=== PATIENT | female | born 1990 | race Caucasian/White ===

== ENCOUNTER 2020-01-19 10:40 | Emergency (ER) | payer OTHER, SELFPAY ==
[2020-01-19 10:47] VITALS: BP 129/69; PULSE 84; RESP 18; TEMP 36.6; O2SAT 100
--- NOTE | 2020-01-19 10:52 | ED.GENADULT ---
HPI - General Adult General Chief complaint: Ear Stated complaint: EARACHE Time Seen by Provider: 01/19/20 10:53 Source: patient and RN notes reviewed Mode of arrival: ambulatory Limitations: no limitations History of Present Illness HPI narrative: 29-year-old female presents with complaints of upper respiratory infection, facial congestion, facial pain, cough, PND, and intermittent headaches (none now, not the worst of her life) for the past 14 days. Ibuprofen, last on 01/18/20 with some relief. LT ear pain started 2-3 days ago without drainage, injury, or itching. No facial swelling. Denies cough. Nasal congestion and rhinorrhea. No chest pain or shortness of breath. Exacerbating factors consist of smoke exposure. Denies fever or chills. Denies nausea, vomiting, and abdominal pain. Tolerating po intake well. Remains active. denies being , LMP 3 weeks ago. Some parts of this dictation were generated by voice recognition software and may contain typographical and/or grammatical inaccuracies. Related Data Allergies Allergy/AdvReac Type Severity Reaction Status Date / Time Sulfa (Sulfonamide Allergy Mild OTHER Verified 01/19/20 10:52 Antibiotics) ibuprofen Allergy Unknown Gastrointestinal Verified 01/19/20 10:52 Upset Review of Systems Review of Systems: Narrative: CONSTITUTIONAL: Denies fever, chills, sweats. EYES: Denies visual changes, redness, discharge. ENT: Complains of rhinorrhea, congestion, facial pain and congestion, LT otalgia. Denies sore throat. CARDIOVASCULAR: Denies chest pain, palpitations, edema. RESPIRATORY: Denies dyspnea, wheezing, cough. GASTROINTESTINAL: Denies abdominal pain, nausea, vomiting, diarrhea. GENITOURINARY: Denies dysuria, hematuria, abnormal discharge. SKIN: Denies rash or itching. MUSCULOSKELETAL: Denies acute back pain, joint pain, or myalgia. NEUROLOGIC: Denies numbness or focal weakness. Complains of intermittent BELLA. PSYCHIATRIC: Denies anxiety or depression. All systems reviewed & are unremarkable except as noted in HPI and below. [facility] Past Medical History Medical History (Updated 01/19/20 @ 11:27 by DAYAMI Vick) Asthma activity induced Miscarriage PCOS (polycystic ovarian syndrome) UTI (urinary tract infection) Surgical History Surgical History (Updated 01/19/20 @ 11:27 by DAYAMI Vick) No significant past surgical history Family History Family History (Updated 01/19/20 @ 11:28 by DAYAMI Vick) Mother Asthma Grandparent Diabetes mellitus Social History Social History (Updated 01/19/20 @ 11:30 by DAYAMI Vick) Smoking status: Former smoker Second hand tobacco smoke exposure: Yes (e-cigarettes) Additional smoking assessment comments: stopped 2 years ago Alcohol intake: current Alcohol use details: Occasionally Substance use: never Living arrangements: with family Occupation/Education: occupation Gender identity (if verbalized by the patient): Female Comments At time of signature, agree with nurse past medical, surgical, social, and family history. There is no relevant family history pertinent to the presenting complaint. Exam Narrative: Exam Narrative: GENERAL: This is a well-nourished, well-developed patient, in no apparent distress. Talks in full sentences and ambulates with steady gait without dyspnea. HEAD: normocephalic, atraumatic. EYES: PERRL. Sclera clear/white. Vision is grossly intact. EARS: External ears normal, auditory canals clear and without drainage, TMs normal without perforation. Hearing grossly intact. NOSE: External nose normal with no obvious nasal discharge, nares with mild redness and enlarged turbinates, clear rhinorrhea. SINUSES: Mild-moderate tenderness upon palpation to maxillary and frontal sinuses. THROAT: Mucous membranes moist, posterior pharynx with PND, mild erythema, no exudate, and normal tonsils. No drainage, no concern
== END 2020-01-19 11:09 | disposition home or self-care (01) ==
PROVIDERS: Emergency Provider Nurse Practitioner Family
DX: J01.00 Acute maxillary sinusitis, unspecified (principal); Z87.891 Personal history of nicotine dependence; J45.990 Exercise induced bronchospasm; E28.2 Polycystic ovarian syndrome
CPT/HCPCS: 99213; G0463

== ENCOUNTER 2020-02-18 12:14 | Emergency (ER) | payer OTHER, SELFPAY ==
--- NOTE | ~2020-02-18 | US_ITS ---
EXAMINATION: US OB <=14 wk fetus w TV DATE: 02/18/2020 13:50 INDICATION: Vaginal bleeding. TECHNIQUE: Real-time transabdominal and transvaginal obstetric ultrasound. FINDINGS: No prior studies for comparison. The uterus measures 9.3 x 6.8 x 5.6 cm. There is an intrauterine gestational sac, with pole eladia ntified. Gestational sac diameter is 1.9 cm corresponding to 6 week 6 day gestational age. [place]-rump length measures 0.18 cm. heart rate is 93 BPM. There are follicular changes of the ovaries. IMPRESSION: 1. Intrauterine gestational sac containing pole with heart rate of 93 BPM. Mean sac diameter co rresponds to a 6 week 6 day gestational age, although crown-rump length is below limits for estimated gestational age. Recommend follow-up with serial quantitative beta-hCG levels and ultrasound as clin ically warranted. 2: Small subchorionic hemorrhage. Reviewed, dictated and finalized at location A. IMPRESSION: 1. Intrauterine gestational sac containing pole with heart rate of 93 BPM . Mean sac diameter corresponds to a 6 week 6 day gestational age, although microsoft dynamics ax developer wn-rump length is below limits for estimated gestational age. Recommend follow- up with serial quantitative beta-hCG levels and ultrasound as clinically jose juan damaris. 2: Small subchorionic hemorrhage.
[2020-02-18 12:38] VITALS: BP 144/86; PULSE 108; RESP 18; TEMP 36.8; O2SAT 99
[2020-02-18] MEDS: FAMOTIDINE 20 MG/2 ML VIAL IV PUSH (12:43)
[2020-02-18] MEDS: ONDANSETRON INJ 4 MG/2 ML VIAL IV PUSH (12:43)
[2020-02-18] MEDS: SODIUM CHLORIDE 0.9% IV 1,000 ML 999 ML IV CONT (12:43)
--- NOTE | 2020-02-18 12:50 | ED.GENADULT ---
HPI - General Adult General Chief complaint: Nausea/Vomiting/Diarrhea Stated complaint: vomiting Time Seen by Provider: 02/18/20 12:19 Source: patient and family Mode of arrival: ambulatory Limitations: no limitations History of Present Illness HPI narrative: Patient is a 29-year-old female who presents to emergency department for evaluation of lower pelvic cramping vaginal bleeding and emesis that is been present now for the last several days patient notes she is 6 weeks G3, P1 patient has plans to see her bag bailer in the near future has not had ultrasound. Patient notes she has plans to terminate the . Patient notes multiple episodes of emesis for which she has not taken anything for her symptoms. Related Data Allergies Allergy/AdvReac Type Severity Reaction Status Date / Time Sulfa (Sulfonamide Allergy Mild OTHER Verified 01/19/20 10:52 Antibiotics) ibuprofen Allergy Unknown Gastrointestinal Verified 01/19/20 10:52 Upset Review of Systems Review of Systems: All systems reviewed & are unremarkable except as noted in HPI and below PMFSH Past Medical History Medical History Asthma activity induced Miscarriage PCOS (polycystic ovarian syndrome) UTI (urinary tract infection) Surgical History Surgical History No significant past surgical history Family History Family History (Updated 01/19/20 @ 11:28 by DAYAMI Vick) Mother Asthma Grandparent Diabetes mellitus Social History Social History Smoking status: Former smoker Second hand tobacco smoke exposure: Yes (e-cigarettes) Additional smoking assessment comments: stopped 2 years ago Alcohol intake: current Substance use: never Gender identity (if verbalized by the patient): Female Exam Narrative: Exam Narrative: GENERAL: Well-appearing, well-nourished, and in no acute distress. HEAD: Normocephalic, atraumatic. EYES: PERRLA and EOMI. ENT: Nares clear, no rhinorrhea or epistaxis. Mucous membranes moist. CHEST: Clear to auscultation. No respiratory distress. No wheezes rales or rhonchi HEART: Regular rate and rhythm. No murmur heard. Normal peripheral pulses. ABDOMEN: Soft, nontender, nondistended EXTREMITIES: Normal range of motion. No edema. SKIN: Warm, dry, no rash. NEURO: No focal deficits. Alert and oriented x3. PSYCH: Normal mood and affect. Course Course Emergency Course: Patient in the room at this time no distress feeling better was hydrated tolerating p.o. intake felt appropriate for outpatient reevaluation by her sales marketing Consultations Consultation #1: spoke with dr vernon who recommends following in clinic this week Vital Signs Vital signs: Vital Signs Temperature 98.3 F 02/18/20 12:38 Pulse Rate 108 H 02/18/20 12:38 Respiratory Rate 18 02/18/20 12:38 Blood Pressure 144/86 H 02/18/20 12:38 Pulse Oximetry 99 02/18/20 12:38 Temperature 98.3 F 02/18/20 12:38 Pulse Rate 108 H 02/18/20 12:38 Respiratory Rate 18 02/18/20 12:38 Blood Pressure 144/86 H 02/18/20 12:38 Pulse Oximetry 99 02/18/20 12:38 Medical Decision Making MDM Narrative Medical decision making narrative: Patient in the room in no distress aware of case findings treatment plan and diagnosis advised to follow-up with sales marketing aware of recommendations and provided with reasons to return Vital Signs Vital Signs: Vital Signs Temperature 98.3 F 02/18/20 12:38 Pulse Rate 108 H 02/18/20 12:38 Respiratory Rate 18 02/18/20 12:38 Blood Pressure 144/86 H 02/18/20 12:38 Pulse Oximetry 99 02/18/20 12:38 Temperature 98.3 F 02/18/20 12:38 Pulse Rate 108 H 02/18/20 12:38 Respiratory Rate 18 02/18/20 12:38 Blood Pressure 144/86 H 02/18/20 12:38 Pulse Oximetry 99 02/18/20 12:38 Lab Data
[2020-02-18 12:56] LABS: Basophils Percent Auto 0.2 % (0.2-1.2); Eosinophils Percent Auto 0.2 % (0-4.4); Hematocrit 40.5 % (37.0-47.0); Immature Granulocyte Absolute 0.03 K/mm3 (0.00-0.031); Immature Granulocyte Percent A 0.3 % (0-0.5); Lymphocytes Absolute Auto 1.39 K/mm3 (0.9-3.2); Lymphocytes Percent Auto 15.5 % (18.3-44.2); Mean Corpuscular HGB Conc 34.6 g/dl (32-36); Mean Corpuscular Hemoglobin 29.8 pg (26-34); Mean Corpuscular Volume 86.2 fl (80-100); Mean Platelet Volume 8.8 fl (7.4-10.4); Monocytes Absolute Auto 0.5 K/mm3 (0.1-0.6); Monocytes Percent Auto 5.2 % (2.6-8.5); Neutrophils Absolute Auto 7.1 K/mm3 (1.3-6.7); Neutrophils Percent Auto 78.6 % (45.5-73.1); Platelet Count Result 336 k/mm3 (150-375); Red Cell Distribution Width 12.3 % (11.5-14.5)
[2020-02-18 13:08] LABS: Alanine Aminotransferase 47 U/L (4-35); Albumin Level 4.8 g/dL (3.5-5.1); Alkaline Phosphatase 79 U/L (38-126); Aspartate Amino Transferase 39 U/L (14-36); Bilirubin,Total 0.9 mg/dL (0.2-1.3); Blood Urea Nitrogen 15 mg/dL (7-17); Calcium 9.9 mg/dL (8.4-10.2); Carbon Dioxide 24 mmol/L (22-30); Chloride 104 mmol/L (98-107); Estimated Glomerular Filt Rate > 60; Glucose 97 mg/dL (65-105); Lipase 67 U/L (23-300); Potassium 3.7 mmol/L (3.4-5.0); Sodium 137 mmol/L (137-145)
[2020-02-18 13:58] LABS: Add Urine Microscopic? YES; Appearance Urine Clear (Clear); Bacteria Urine Trace /hpf; Bilirubin Urine Negative (Negative); Blood Urine 1+ (Negative); Color Urine Amber (Yellow); Glucose Urine UA Negative (Negative); Ketones Urine 1+ mg/dL (Negative); Leukocyte Esterase Ur Trace LEU/UL (Negative); Mucus Urine Heavy /lpf; Nitrate Urine Negative (Negative); Protein Urine 1+ mg/dL (Negative); RBC Urine 0-2 /hpf (0-2); Specific Grav Ur 1.029 (1.001-1.035); Squamous Epithelial Cell Urine Few /hpf (Few); WBC Urine 0-3 /hpf
[2020-02-18 14:55] VITALS: BP 119/69; PULSE 73; O2SAT 100
== END 2020-02-18 14:56 | disposition home or self-care (01) ==
PROVIDERS: Emergency Medicine Emergency Medical Services; Emergency Provider Emergency Medicine
DX: O20.9 Hemorrhage in early pregnancy, unspecified (principal); Z3A.01 Less than 8 weeks gestation of pregnancy; O99.281 Endocrine, nutritional and metabolic diseases complicating pregnancy, first trimester; E28.2 Polycystic ovarian syndrome; Z87.440 Personal history of urinary (tract) infections; O99.511 Diseases of the respiratory system complicating pregnancy, first trimester; J45.990 Exercise induced bronchospasm; Z77.29 Contact with and (suspected) exposure to other hazardous substances; Z87.891 Personal history of nicotine dependence
CPT/HCPCS: 36415; 76801; 76817; 80053; 81001; 81025; 83690; 84702; 85025; 86900; 86901; 96361; 96374; 96375; 99284; J2405; J7030

== ENCOUNTER 2020-12-23 14:47 | Emergency (ER) | payer OTHER, SELFPAY ==
[2020-12-23 14:56] VITALS: BP 128/80; PULSE 97; RESP 12; TEMP 36.9; O2SAT 99
--- NOTE | 2020-12-23 15:01 | ED.EAR ---
HPI - Ear Problem General Chief complaint: Ear Stated complaint: ear pain/jaw pain/sinus drainage Time Seen by Provider: 12/23/20 15:02 Source: patient and RN notes reviewed History of Present Illness HPI Narrative: Patient is a 30-year-old female who presents the urgent care with complaints of left ear pain, mild sinus drainage and left jaw pain. Patient states that it is ongoing for approximately 4 days. Patient states she does have an upper left broken wisdom tooth which is been there for some time and she has been unable to obtain an oral surgeon due to insurance purposes. Patient denies of any fever, chills, nausea, vomiting, cough. Patient states that she has taken antihistamines for the postnasal drainage and naproxen. Patient states that nothing seems to be helping with the pain. No other acute complaints. No acute distress noted. Patient states she has been tested for Covid regularly and denies of any recent exposure. Patient aware of the plan of care. Some parts of this dictation were generated by voice recognition software and may contain typographical and/or grammatical inaccuracies. Related Data Home Medications Medication Instructions Recorded Confirmed No Home Medications 12/23/20 12/23/20 Allergies Allergy/AdvReac Type Severity Reaction Status Date / Time Sulfa (Sulfonamide Allergy Mild OTHER Verified 12/23/20 14:59 Antibiotics) ibuprofen Allergy Unknown Gastrointestinal Verified 12/23/20 14:59 Upset Review of Systems Review of Systems: Narrative: CONSTITUTIONAL: Denies fever, chills, or sweats. EYES: Denies visual changes, redness, or discharge. ENT: Reports of sinus drainage, left otalgia and left jaw pain CARDIOVASCULAR: Denies chest pain, palpitations, or edema. RESPIRATORY: Denies cough or dyspnea. GASTROINTESTINAL: Denies abdominal pain, nausea, vomiting, or diarrhea. GENITOURINARY: Denies dysuria or hematuria. SKIN: Denies rash or itching. MUSCULOSKELETAL: Denies back pain, joint pain, or myalgia. NEUROLOGIC: Denies headache, numbness, or weakness. All other systems reviewed are negative, except as documented in HPI. [facility] Past Medical History Medical History (Updated 12/23/20 @ 15:13 by DAYAMI Arthur) Asthma activity induced Miscarriage PCOS (polycystic ovarian syndrome) UTI (urinary tract infection) Surgical History Surgical History No significant past surgical history Family History Family History (Updated 01/19/20 @ 11:28 by DAYAMI Vick) Mother Asthma Grandparent Diabetes mellitus Social History Social History Smoking status: Former smoker Second hand tobacco smoke exposure: Yes (e-cigarettes) Additional smoking assessment comments: stopped 2 years ago Alcohol intake: current Substance use: never Gender identity (if verbalized by the patient): Female Comments At the time of my signature, I reviewed and agree with the nursing past medical, surgical, social, and family history. There is no relevant family history pertinent to the patient complaint. Exam Narrative: Exam Narrative: GENERAL: This is a well-nourished, well-developed patient, in no apparent distress. HEAD: normocephalic, atraumatic. EYES: PERRL. Sclera clear/white. Vision is grossly intact. EARS: External ears normal, auditory canals clear and without drainage, mild fluid noted behind left TM without otitis, TMs normal without perforation. Hearing grossly intact. NOSE: External nose normal with no obvious nasal discharge, nares without redness, no rhinorrhea. THROAT: Mucous membranes moist, mild postnasal drainage without exudate or ulceration. No tonsillar edema noted. DENTAL: Notable buccal fracture to the left upper third molar without any notable abscess or carious lesion NECK: Neck supple, non-tender without lymphadenopathy CARDIOVASCULAR: Re
== END 2020-12-23 15:19 | disposition home or self-care (01) ==
PROVIDERS: Emergency Provider Nurse Practitioner Family
DX: H92.02 Otalgia, left ear (principal); K08.89 Other specified disorders of teeth and supporting structures; Z87.891 Personal history of nicotine dependence; J45.990 Exercise induced bronchospasm; E28.2 Polycystic ovarian syndrome
CPT/HCPCS: 99211; G0463

== ENCOUNTER 2024-04-05 15:45 | Emergency (ER) | payer OTHER, SELFPAY ==
[2024-04-05 15:56] VITALS: BP 125/86; PULSE 103; RESP 16; TEMP 36.9; O2SAT 100
--- NOTE | 2024-04-05 15:59 | ED.URI ---
HPI - URI/Sore Throat General Chief Complaint: Upper Respiratory Infection Stated Complaint: CONGESTION/EARS/CHEST Source: patient and RN notes reviewed Mode of arrival: ambulatory Limitations: no limitations History of Present Illness HPI Narrative: 33 y/o female presented for c/o nasal congestion and drainage, bilateral ear pressure, and now it moved into the chest. Denies chest pain, palpitations, sob, wheezing, n/v/d/f/c. Taking Sudafed and Robitussin. Reports children with similar symptoms MD elicited complaint: cough Related Data Allergies Allergy/AdvReac Type Severity Reaction Status Date / Time Sulfa (Sulfonamide AdvReac Mild OTHER Verified 04/05/24 16:00 Antibiotics) Review of Systems Review of Systems: CONSTITUTIONAL: denies malaise, chills, sweats, fever EYES: Denies visual changes, redness, or discharge ENT: Reports rhinorrhea, congestion, denies sinus pain, otalgia, sore throat CARDIOVASCULAR: Denies chest pain, palpitations, edema RESPIRATORY: Reports cough, post nasal drainage. Denies dyspnea GASTROINTESTINAL: Denies abdominal pain, nausea, vomiting, diarrhea SKIN: Denies rash or itching MUSCULOSKELETAL: denies myalgia NEUROLOGIC: Denies headache PMFSH Past Medical History Medical History (Updated 04/05/24 @ 16:24 by Azucena Moreira APRN) Anxiety Asthma activity induced Miscarriage PCOS (polycystic ovarian syndrome) UTI (urinary tract infection) Vaginal irritation Surgical History Surgical History H/O cystoscopy No significant past surgical history Family History Family History Mother Asthma Grandparent Diabetes mellitus Ovary cancer Cervix cancer Social History Social History (Updated 09/28/22 @ 09:58 by Rachel Noguera MA) Smoking status: Current some day smoker Tobacco type: e-cigarettes/vaping Second hand tobacco smoke exposure: Yes (e-cigarettes) Additional smoking assessment comments: stopped 2 years ago Alcohol intake: current Alcohol use details: Occasionally Substance use: never Living arrangements: with family Occupation/Education: occupation 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 TMs pearly moreno with dull light reflex bilaterally; no tragal tenderness. Oropharynx not erythematous without lesions or exudate, no drooling, no hoarseness, no trismus, uvula midline. CHEST: Clear to auscultation, breath sounds equal. No wheezing, rhonchi, rales, or stridor. No respiratory distress, speaks in full sentences. HEART: Regular rate and rhythm. No murmur heard. SKIN: Warm, dry, no rash. NEURO: Alert and oriented x3. PSYCH: Normal mood and affect Course Course Emergency Course: Patient is aware of diagnosis, understands and agrees to treatment plan. Anticipatory guidance given. Patient agrees to follow-up as directed and is aware of reasons to seek care at the emergency department. Portions of this record may have been created with voice recognition software Level of Care: Express Care Visit Vital Signs Vital signs: Vital Signs Temperature 98.5 F 04/05/24 15:56 Pulse Rate 103 H 04/05/24 15:56 Respiratory Rate 16 04/05/24 15:56 Blood Pressure 125/86 04/05/24 15:56 Pulse Oximetry 100 04/05/24 15:56 Temperature 98.5 F 04/05/24 15:56 Pulse Rate 103 H 04/05/24 15:56 Respiratory Rate 16 04/05/24 15:56 Blood Pressure 125/86 04/05/24 15:56 Pulse Oximetry 100 04/05/24 15:56 reviewed MDM - URI/Sore Throat MDM Narrative Medical decision making narrative: Negative for the COVID. Discussed physical exam findings. Advised supportive measu
== END 2024-04-05 16:46 | disposition home or self-care (01) ==
PROVIDERS: Emergency Provider Nurse Practitioner Family; PCP Internal Medicine
DX: B34.9 Viral infection, unspecified (principal); Z20.822 Contact with and (suspected) exposure to COVID-19; J45.990 Exercise induced bronchospasm; E28.2 Polycystic ovarian syndrome
CPT/HCPCS: 87426; 87804; 99213; G0463

== ENCOUNTER 2024-11-04 10:36 | Emergency (ER) | payer OTHER, SELFPAY ==
[2024-11-04 11:08] VITALS: BP 114/75; PULSE 82; RESP 16; TEMP 36.6; O2SAT 100
--- NOTE | 2024-11-04 11:34 | ED_ITS ---
HPI - URI/Sore Throat General Chief Complaint: Upper Respiratory Infection Stated Complaint: Chest Congestion Source: patient Mode of arrival: ambulatory Limitations: no limitations History of Present Illness HPI Narrative: 34 y/o female presented for c/o nasal congestion and drainage, cough, and chest congestion worsening for one week. Denies sob, wheezing, n/v/d/f/c. Taking otc meds for symptoms. Son with similar symptoms. Related Data Home Medications Medication Instructions Recorded Confirmed bupropion HCl 150 mg 24 hr tablet, mg PO 11/04/24 extended release hydroxyzine HCl 25 mg tablet mg 11/04/24 Allergies Allergy/AdvReac Type Severity Reaction Status Date / Time Sulfa (Sulfonamide AdvReac Mild OTHER Verified 11/04/24 11:12 Antibiotics) Review of Systems Review of Systems: CONSTITUTIONAL: Denies body aches, fever, chills, or sweats. EYES: Denies visual changes, redness, or discharge. ENT: Reports rhinorrhea, congestion, sore throat, otalgia. CARDIOVASCULAR: Denies chest pain, palpitations, or edema. RESPIRATORY: Reports cough, sob, denies wheezing. GASTROINTESTINAL: Denies abdominal pain, nausea, vomiting, or diarrhea. NEUROLOGIC: Denies headache, numbness, tingling, or weakness. All systems reviewed & are unremarkable except as noted in HPI and below PMFSH Past Medical History Medical History Anxiety Asthma activity induced Miscarriage PCOS (polycystic ovarian syndrome) UTI (urinary tract infection) Vaginal irritation Surgical History Surgical History H/O cystoscopy No significant past surgical history Family History Family History Mother Asthma Grandparent Diabetes mellitus Ovary cancer Cervix cancer Social History Social History Smoking status: Current some day smoker Tobacco type: e-cigarettes/vaping Second hand tobacco smoke exposure: Yes (e-cigarettes) Additional smoking assessment comments: stopped 2 years ago Alcohol intake: current Alcohol use details: Occasionally Substance use: never Living arrangements: with family Occupation/Education: occupation 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 Please see nursing chart for further information. There is no relevant family history pertinent to the presenting complaint Exam Narrative: GENERAL: Well-appearing, in no acute distress. EYES: EOMI. No redness or drainage. Conjunctivae normal. ENT: Mucous membranes pink and moist. Nasal congestion TMs normal bilaterally. Throat normal. Uvula midline. NECK: Normal AROM. Supple. CHEST: No respiratory distress. Lungs clear to all obrien. HEART: Regular rate and rhythm. No murmur appreciated. ABDOMEN: Soft, nontender, nondistended, normal active bowel sounds. SKIN: Warm, dry, no rash. Capillary refill normal. Normal skin turgor. NEURO: Alert and oriented x3. Gait steady. PSYCH: Normal affect. Course Course Emergency Course: Patient is aware of diagnosis, understands and agrees to treatment plan. Anticipatory guidance given. Patient agrees to follow-up as directed and is aware of reasons to seek care at the emergency department. Portions of this record may have been created with voice recognition software Level of Care: Express Care Visit Vital Signs Vital signs: Vital Signs Temperature 98 F 11/04/24 11:08 Pulse Rate 82 11/04/24 11:08 Respiratory Rate 16 11/04/24 11:08 Blood Pressure 114/75 11/04/24 11:08 Pulse Oximetry 100 11/04/24 11:08 Temperature 98 F 11/04/24 11:08 Pulse Rate 82 11/04/24 11:08 Respiratory Rate 16 11/04/24 11:08 Blood Pressure 114/75 11/04/24 11:08 Pulse Oximetry 100 11/04/24 11:08 MDM - URI/Sore Throat MDM Narrative Medical decision making narrative: Discussed physical exam findings. Advised supportive measures and signs/symptoms to go to the ER. Pt is appropriate for outpt treatment and f/u. Differential Diagnosis Differential diagnosis: Likely upper respiratory infection, otitis media, sinusitis, viral infection, bronchitis, pharyngitis and other (Pneumonia) Discharge Plan Discharge Clinical Impression: Acute lower respiratory infection Patient Disposition: Home, Self-Care Condition: Stable Instructions: Antibiotic Form, Pneumonia (ED) Additional Instructions: Acute bronchitis can be contagious because it is usually caused by infection with a virus or bacteria. It is usually for a few days but you can be contagious for up to one week. Avoid crowds until you do not have a fever and symptoms are improved Take medication as directed Recommend Flonase spray and Zyrtec (or Claritin/Vandana) for nasal congestion over the counter Cough syrup may cause drowsiness; avoid driving or take it at night time. Tylenol 1000mg every 8 hours as needed for pain Symptomatic treatment includes: rest, fluids, and increase humidity of the air at home. Follow up with your primary care provider as needed in 1 week Go to the ER for worsening symptoms or concerns Prescriptions: New methylprednisolone [Medrol (Sander)] 4 mg tablets,dose pack See Rx Instructions .ROUTE .COMPLEX Qty: 21 0RF Rx Instructions: orally per package directions amoxicillin-pot clavulanate 875-125 mg tablet 1 tablet PO Q12H 7 Days Qty: 14 0RF albuterol sulfate 90 mcg/actuation HFA aerosol inhaler 2 inh inhalation QID PRN (Reason: shortness of breath or wheezing) Qty: 8.5 0RF No Action hydroxyzine HCl 25 mg tablet bupropion HCl 150 mg tablet extended release 24 hr PO Follow-up/Referrals: PHYSICIAN,SUPERVISOR TUMBLERS [Primary Care Provider] -
== END 2024-11-04 11:48 | disposition home or self-care (01) ==
PROVIDERS: Emergency Provider Nurse Practitioner Family
DX: J22 Unspecified acute lower respiratory infection (principal); F17.290 Nicotine dependence, other tobacco product, uncomplicated; J45.909 Unspecified asthma, uncomplicated; E28.2 Polycystic ovarian syndrome; F41.9 Anxiety disorder, unspecified
CPT/HCPCS: 99213; G0463

== ENCOUNTER 2025-10-22 12:19 | Emergency (ER) | payer OTHER, SELFPAY ==
--- NOTE | 2025-10-22 12:22 | ED.URI ---
HPI - URI/Sore Throat General Chief Complaint: Upper Respiratory Infection Stated Complaint: Sinus Infection Symptoms Time Seen by Provider: 10/22/25 12:20 Source: patient Mode of arrival: ambulatory Limitations: no limitations History of Present Illness HPI Narrative: Patient is a 35-year-old female who presents with 3 days of sinus pressure, congestion, postnasal drip, headache and cough. Denies any fever, chills, nausea, vomiting, diarrhea. Has taken [place] and Robitussin with honey Related Data Allergies Allergy/AdvReac Type Severity Reaction Status Date / Time Sulfa (Sulfonamide AdvReac Mild OTHER Verified 10/22/25 12:35 Antibiotics) Review of Systems Review of Systems: All systems reviewed & are unremarkable except as noted in HPI and below Constitutional: Constitutional: Denies chills, Denies fatigue, Denies fever(s), Reports headache(s), Denies malaise and Denies weakness Eyes: Eyes: Denies blurry vision, Denies itchy eyes and Denies loss of vision ENT: Denies otalgia, Denies headache(s), Reports nasal congestion, Reports post nasal drip, Denies sinus pain, Reports sinus pressure and Denies sore throat Cardiovascular: Cardiovascular: Denies chest pain, Denies irregular heart rhythm and Denies dyspnea Respiratory: Respiratory: Reports cough and Denies dyspnea Gastrointestinal: Gastrointestinal: Denies abdominal pain, Denies diarrhea, Denies nausea and Denies vomiting Musculoskeletal: Musculoskeletal: Denies back pain, Denies myalgias and Denies arthralgias Integumentary/Breasts: Skin/Breast: Denies pruritus and Denies rash Neurologic: Denies headache(s), Denies loss of vision and Denies weakness Psychiatric: Psychiatric: Reports no additional psychiatric complaints Endocrine: Endocrine: Denies fatigue Allergic/Immunologic: Allergic/Immunologic: Denies itchy eyes PMFSH Past Medical History Medical History Vaginal irritation Anxiety UTI (urinary tract infection) PCOS (polycystic ovarian syndrome) Asthma activity induced Miscarriage Surgical History Surgical History H/O cystoscopy No significant past surgical history Family History Family History Mother Asthma Grandparent Diabetes mellitus Ovary cancer Cervix cancer Social History Social History Smoking status: Current some day smoker Tobacco type: e-cigarettes/vaping Second hand tobacco smoke exposure: Yes (e-cigarettes) Additional smoking assessment comments: stopped 2 years ago Alcohol intake: current Alcohol use details: Occasionally Substance use: never Living arrangements: with family Occupation/Education: occupation 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 There is no relevant family history pertinent to the presenting complaint. Exam Const: General: cooperative, healthy appearing, comfortable, no acute distress and well nourished Nutritional Appearance: well nourished Orientation/consciousness: patient oriented x3 Limitations: no limitations HENMT: Head: normal to inspection, normocephalic and atraumatic Ears: hearing grossly normal bilaterally, external ears normal, TM's normal bilaterally, EAC's normal and no periauricular adenopathy Face/Nose/Sinus: Normal external nose present, Abnormal mucous membranes and turbinates present erythematous bilateral and diffuse, normal facial exam, sinuses nontender and face symmetric Face and sinus: normal facial exam, sinuses nontender and face symmetric Mouth: Yes Normal oral and palatal mucosa present, Yes lip normal, Yes tongue normal, Yes Normal salivary glands and ducts present, Yes oropharynx normal and Yes moist mucous membranes Teeth and gingiva: dentition normal Throat: posterior oropharynx normal, tonsils normal and uvula midline Eyes: General: appearance normal, both eyes and all related structures Alignment and Position: alignment normal and position normal Periorbital: periorbital findings normal Eyelids: eyelids normal Pupils: Equal, round and reactive pupils present Neck: Neck: normal visual inspection, full ROM, no lymphadenopathy and supple Chest: Chest palpation & inspection: normal inspection of the chest and normal palpation of entire chest wall Resp: Effort & Inspection: normal respiratory effort and able to speak in complete sentences Auscultation: clear to auscultation bilaterally, no crackles, no rales, no rhonchi and no wheezes Cardio: Rate: regular rate Rhythm: regular rhythm Heart sounds: S1 normal heart sound present and S2 normal heart sound present GI: Inspection: normal to inspection Skin: General skin exam: normal color and no rashes or lesions noted Neuro: General: patient oriented x3 and moves all extremities Cranial nerves: Yes Equal, round and reactive pupils present Speech: normal speech Gait exam (Neuro): Normal gait present Extrem: General: normal to inspection, full ROM and no edema Psych: Appearance: grossly normal and well kempt Mental Status: mental status grossly normal Speech and movement: Normal speech and movement present Affect: normal affect Attitude: cooperative Thought process: Normal thought process present Course Course Emergency Course: Discharge instructions reviewed with patient, as well as provided in writing per nursing staff. The instructions also include specific and strict return/GO TO THE ER as well as f/u information. All questions have been answered, and the patient deny any further questions with discharge and discharge plan. Portions of this record may have been created with voice recognition software Level of Care: Express Care Visit Vital Signs Vital signs: Reviewed MDM - URI/Sore Throat MDM Narrative Medical decision making narrative: Rapid COVID, flu, strep were negative. A throat culture is pending. Symptoms likely viral in etiology. Pt well hydrated appearing, in no respiratory distress, hemodynamically stable. Recommend supportive care. The patient is stable at time of discharge the clinical impression was discussed and the patient was given the opportunity to ask questions, which were addressed as completely as possible given the information available at present. Anticipatory guidance and return to care precautions were discussed and the importance of primary care follow-up was stressed and encouraged. The patient voiced understanding of the plan, indications to return, and the need for follow-up. Exam findings show no acute concerns or changes Patient is appropriate for outpatient treatment and follow-up. Differential diagnosis considered: Mchugh virus, strep pharyngitis, allergic rhinitis, upper respiratory tract infection, sinusitis, rhinosinusitis, nasopharyngitis. viral pharyngitis, otitis media, otitis externa, otitis effusion, foreign body, cerumen impaction, viral syndrome, and influenza.? Medical Records Attestation: I reviewed the patient's medical records. Lab Data Attestation: I reviewed the patient's lab results. Lab results narrative: negative for COVID and flu Discharge Plan Discharge Clinical Impression: Upper respiratory infection Qualifiers: URI type: unspecified viral URI Qualified Code(s): J06.9 - Acute upper respiratory infection, unspecified Patient Disposition: Home Condition: Stable Instructions: Upper Respiratory Infection (ED) Additional Instructions: Your Covid and flu are both negative Your symptoms are likely due to a viral illness, which is not treated with antibiotics. Viral symptoms can be present for up to a few weeks. -For pain/fever, you may take: Tylenol 650-1000mg by mouth every 4-6 hours. Do not exceed 4000mg in 24 hours. Advil (Ibuprofen) 600 mg by mouth every 6 hours. Do not exceed 2400mg in 24 hours. 8 AM: Tylenol 11 AM: Ibuprofen 2 PM: Tylenol 5 PM: Ibuprofen 8 PM: Tylenol 11 PM: Ibuprofen 2 AM: Tylenol 5 AM: Ibuprofen -Antihistamine medication such as Benadryl/Zyrtec at night and Claritin/Vandana during the day can help improve symptoms. -Use Flonase twice a day for 5 days then daily to help reduce the inflammation and dry up your sinuses. -You can also use Sudafed behind the pharmacy counter(12 or 24 hour). Be sure to drink plenty of water with these medications at least 8 ounces with every dose and it is important to drink 8 to 10 glasses of water per day. Water is a natural decongestant -Eat and drink things that are easy to swallow, like tea or soup, or popsicles. -Oral rinses such as: Salt water gargles and/or may use topical anesthetic (eg. Chloraseptic spray) or lozenges to relieve dryness or throat pain). -Frequent hand washing or hand faceter is one of the best ways to prevent spread of infection. -Using a vaporizer or humidifier at night will also help thin secretions and help with coughing up phlegm. Call your Primary Care Doctor and make a follow-up appointment in 3 days. If your cough worsens, you develop a fever greater than 103, you develop shaking chills, a fast heartbeat, trouble breathing and/or feel you are are breathing much faster than usual, call your Primary Care Doctor or go to the ER. Patient Language: Frisian Prescriptions: New fluticasone propionate [Flonase Allergy Relief] 50 mcg/actuation spray,suspension 1 spray intranasal DAILY Qty: 16 0RF Rx Instructions: administer into each nostril Follow-up/Referrals: Juan Ramon Blevins MD [Physician, Family Practice] - 3 Days Time of Disposition: 13:15
[2025-10-22 12:24] VITALS: BP 125/79; PULSE 88; RESP 16; TEMP 36.7; O2SAT 100
[2025-10-22 13:13] LABS: EDCOVIDSCREEN Negative (Negative); EDINFLUASCREEN Negative (Negative); EDINFLUBSCREEN Negative (Negative)
== END 2025-10-22 13:20 | disposition home or self-care (01) ==
PROVIDERS: Emergency Provider Nurse Practitioner Family
DX: J06.9 Acute upper respiratory infection, unspecified (principal); Z20.822 Contact with and (suspected) exposure to COVID-19; E28.2 Polycystic ovarian syndrome; J45.990 Exercise induced bronchospasm; Z87.891 Personal history of nicotine dependence
CPT/HCPCS: 87426; 87804; 99213; G0463